=== PATIENT | male | born 2000 | race African-American/Black ===

== ENCOUNTER 2020-09-20 17:20 | Emergency (ER) | payer SELFPAY ==
[~2020-09-20] VITALS: Ht 193 cm; Wt 105.0 kg
[2020-09-20] MEDS ORDERED: LORAZEPAM 2MG/ML CPJ IM ONE ×2 (17:45→18:30)
[2020-09-20] MEDS ORDERED: DIPHENHYDRAMINE 50MG/ML VIAL IM ONE (17:45)
[2020-09-20] MEDS ORDERED: OLANZAPINE 10 MG/VIAL IM ONE (17:45)
[2020-09-20] MEDS ORDERED: SODIUM CHLORIDE 0.9% 1,000 ML IV ONE (17:45)
[2020-09-20 19:10] LABS: CHLORIDE 108 mEq/L (98-107)
[2020-09-20 19:14] LABS: ETHANOL BLOOD < 10 mg/dL
[2020-09-20 19:31] LABS: BASOPHILS % 0.7 % (0.0-2.0); EOSINOPHILS % 2.3 % (0.0-5.0); HEMATOCRIT. 38.4 % (42.0-52.0); HEMOGLOBIN. 13.4 g/dL (14.0-18.0); LYMPHOCYTES % 9.7 % (20.0-50.0); MEAN CORPUSCULAR HEMOGLOBIN 32.3 pg (28.0-32.0); MEAN CORPUSCULAR VOLUME 93.1 fL (80.0-94.0); MONOCYTES % 12.2 % (2.0-8.0); NEUTROPHILS % 75.1 % (40.0-76.0); PLATELET 288 x1000/uL (130-400); RED BLOOD CELL COUNT 4.13 mill/uL (4.7-6.1); RED CELL DISTRIBUTION WIDTH 12.8 % (11.6-14.6)
[2020-09-20] MEDS ORDERED: POTASSIUM CHLORIDE 20MEQ TABLET SR PO ONE (21:00)
[2020-09-20] MEDS ORDERED: FOLIC ACID 1 MG, THIAMINE HCL 100 MG, MVI, ADULT NO.1 10 ML in DEXTROSE 5% WATER 1,000 ML IV ONE (21:00)
[2020-09-20] MEDS ORDERED: FOLIC ACID 1 MG, THIAMINE HCL 100 MG in DEXTROSE 5% WATER 1,000 ML IV NR (21:07)
[2020-09-20] MEDS ORDERED: MULTIVITAMINS,THER W-MINERALS TABLET PO NR (21:15)
[2020-09-21] VITALS: BP 123/68
[2020-09-21 01:11] LABS: CLARITY URINE CLEAR (CLEAR); COLOR URINE YELLOW (YELLOW); KETONES URINE 1+ (NEGATIVE); LEUKOCYTE ESTERASE URINE NEGATIVE (NEGATIVE); NITRITE URINE NEGATIVE (NEGATIVE); OCCULT BLOOD URINE NEGATIVE (NEGATIVE); PROTEIN URINE NEGATIVE (NEGATIVE); SPECIFIC GRAVITY URINE 1.008 (1.005-1.030); UROBILINOGEN URINE 0.2 E.U./dL (0.2-1.0)
[2020-09-21 01:21] LABS: *AMPHETAMINES SCREEN URINE NEGATIVE (NEGATIVE); *BARBITURATES SCREEN URINE NEGATIVE (NEGATIVE)
[2020-09-21 01:22] LABS: *BENZODIAZEPINES SCREEN URINE NEGATIVE (NEGATIVE); *COCAINE SCREEN URINE NEGATIVE (NEGATIVE); METHADONE URINE SCREEN NEGATIVE (NEGATIVE); OPIATES URINE SCREEN NEGATIVE (NEGATIVE); PHENCYCLIDINE URINE SCREEN NEGATIVE (NEGATIVE)
[2020-09-21 01:23] LABS: CANNABINOID URINE SCREEN PRESUMTIVE POSITIVE (NEGATIVE)
[2020-09-21] MEDS ORDERED: OLANZAPINE 10 MG/VIAL IM ONE (05:45)
== END 2020-09-21 08:05 | disposition home or self-care (01) ==
LOC: ER 17:20
DX: F19.10 Other psychoactive substance abuse, uncomplicated (principal); F20.9 Schizophrenia, unspecified; F31.9 Bipolar disorder, unspecified; Z20.822 Contact with and (suspected) exposure to COVID-19
CPT/HCPCS: 36415; 80053; 80305; 80307; 80320; 80329; 81003; 82962; 85025; 87426; 96361; 96365; 96372; 99285; J1200; J2060; J3411; J3490; J7030; J7070; Z7610; G0480